=== PATIENT | male | born 1930 | race Caucasian/White ===

== ENCOUNTER 2018-02-07 09:37 | Emergency (ER) | payer OTHER ==
--- NOTE | 2018-02-07 10:37 | RAD REPORT ---
EXAM DESCRIPTION: CT - Stone Protocol - 02/07/2018 10:23 am CLINICAL HISTORY: Flank pain. COMPARISON: 12/22/2013 TECHNIQUE: Axial images were obtained without oral or IV contrast. Lack of contrast limits solid org an and vascular assessment. The [id number] spans the entirety of the system partially obscuring uppermost abdomen and lung bases. Coronal reformatted images were obtained and reviewed. All CT scans are performed using dose optimization technique as appropriate and may include automated exposure control or mA/KV adjustment according to patient size. FINDINGS: Linear atelectasis is present in both lung bases. Several low-density hepatic lesions are noted compatible with small benign cysts. No biliary dilatati on suspected. The spleen, pancreas and adrenal glands are within normal limits.17 mm inferolateral le ft renal cyst. Small cyst is present anterior inferior right kidney measuring 17 mm. The pancreas and adrenal glands are normal. No pathologic lymphadenopathy in the abdomen or pelvis. Aortic atheroscle rosis. No urinary tract stones or obstructive uropathy. Prominent retained stool in the colon is noted. Sigmoid diverticulosis is present. A small submucosal mass is suspected involving the sigmoid colon wall measuring 15 mm (image 91/167). Normal appendix n oted. Moderate lumbosacral degenerative changes. Moderate fat containing left inguinal hernia. IMPRESSION: No urinary tract stones or obstructive uropathy. Significant fecal retention in the colon. 15 mm submucosal mass suspected in the sigmoid colon. Followup colonoscopy may be considered. Sigmoid diverticulosis coli without diverticulitis.
[2018-02-07 10:53] LABS: Absolute Lymphocytes (CBC) 0.9 K/uL (0.7-4.9); Absolute Monocytes 0.5 K/uL (0.1-1.3); Absolute Neutrophil 5.7 K/uL (1.8-8.0); Basophils % 0.2 % (0-1.3); Eosinophils % 2.8 % (0-4.4); Hematocrit 45.8 % (39.6-49.0); Lymphocytes % 12.8 % (15.3-44.8); MCH 30.5 pg (27.0-35.0); MCV 93.8 fL (80-100); MPV 7.8 fL (7.6-11.3); Monocytes % 7.1 % (3.3-12.3); RBC Red Blood Cell Count 4.89 M/uL (4.33-5.43)
[2018-02-07 11:00] LABS: Potassium 4.7 mEq/L (3.6-5.0)
[2018-02-07 11:06] LABS: Albumin 4.1 g/dL (3.2-5.5); Bilirubin Direct 0.1 mg/dL (0-0.2); Bilirubin Total 1.1 mg/dL (0.3-1.2); Protein, Total 7.3 g/dL (6.0-8.3)
--- NOTE | 2018-02-07 11:22 | ER ---
Nurse's Notes [facility] Name: Hussein Corcoran Age: 88 yrs Sex: Male : 1930 Arrival Date: 02/07/2018 Time: 09:47 Bed 16 Private MD: Diagnosis: Generalized abdominal pain Presentation: 02/07 09:35 Presenting complaint: Presenting complaint: EMS states: Pt. is 87 yr old male from [address] A \T\ O x 1, Pt. had breakfast this morning and went to have a bowel movement, and was unable to and c/o of lower abdominal pain. When he got on the stretcher and laid back it relieved the pain. Pain was a 10/10, bowel sounds are normal. Pt. has irregular BM's. BS 168. Has a history of demenita. BP 127/63, P 90's, 95-96% RA. 12- lead showed SR with PVC's. NKA. 09:35 Transition of care: patient was received from another setting of care (long-term care [facility] facility), [facility]. 09:35 Method Of Arrival: EMS: [facility] 09:35 Onset of symptoms was February 07, 2018 at 09:10. Initial Sepsis Screen: Does the patient rb1 meet any 2 criteria? No. Patient's initial sepsis screen is negative. Does the patient have a suspected source of infection? No. Patient's initial sepsis screen is negative. Care prior to arrival: None. 09:35 Acuity: FADUMO 3 rb1 Triage Assessment: 09:35 General: Appears in no apparent distress. comfortable, Behavior is calm, cooperative, rb1 Denies fever. Pain: Complains of pain in lower abdomen Pain currently is 0 out of 10 on a pain scale. Neuro: Level of Consciousness is awake, alert, obeys commands, Oriented to person, place, time, situation. Cardiovascular: Capillary refill < 3 seconds is brisk in bilateral fingers. Respiratory: Airway is patent Respiratory effort is even, unlabored, Respiratory pattern is regular, symmetrical. GI: Reports constipation, last BM 2-3 days ago. Derm: Skin is pink, warm \T\ dry. Musculoskeletal: Range of motion: intact in all extremities. Historical: - Allergies: 09:35 No Known Allergies; rb1 - Home Meds: 09:35 Alphagan P 0.1 % ophthalmic drop 1 drop twice a day [Active]; aspirin 81 mg Oral chew 1 rb1 tab once daily [Active]; docusate sodium 100 mg Oral cap 2 caps once daily [Active]; dorzolamide 2 % ophthalmic drop 1 drop twice a day [Active]; duloxetine 60 mg oral cpDR 1 cap once daily [Active]; famotidine 40 mg Oral tab 1 tab once daily [Active]; hydrocodone-ibuprofen 7.5-200 mg Oral tab 1 tab four times a day [Active]; levocetirizine 5 mg oral tab 1 tab once daily [Active]; Lumigan 0.01 % ophthalmic drop daily [Active]; meloxicam 15 mg oral tab 1 tab once daily [Active]; metoprolol succinate 50 mg oral Tb24 1 tab once daily [Active]; Natural Balance Tears 0.1-0.3 % ophthalmic drop four times a day [Active]; potassium chloride 10 mEq Oral cpER 1 cap once daily [Active]; Systane Gel ophthalmic ophthalmic [Active]; tolterodine 4 mg oral cp24 1 cap once daily [Active]; trazodone 50 mg Oral tab 0.5 tab bedtime [Active]; lorazepam 0.5 mg Oral tab 1 tab bedtime [Active]; nitroglycerin 0.4 mg SL subl 1 tab every 5 minutes [Active]; - PMHx: 09:35 HEART FAILURE; High Cholesterol; rb1 - PSHx: 09:35 CABG; Cholecystectomy; cataract sx; Neck fusion; rb1 - Immunization history:: Adult Immunizations up to date. - Social history:: Smoking status: Patient/guardian denies using tobacco. Screenin:35 Abuse screen: Denies threats or abuse. Nutritional screening: No deficits noted. rb1 Tuberculosis screening: No symptoms or risk factors identified. Fall Risk None identified. Assessment: 09:35 General: see triage assessment. rb1 09:35 GI: Bowel sounds present X 4 quads. Abd is soft Abd is non tender. rb1 10:44 Reassessment: Patient appears in no apparent distress at this time. Patient and/or rb1 family updated on plan of care and expected duration. Pain level reassessed. Patient is alert, oriented x 3, equal unlabored respirations, skin warm/dry/pink. Patient denies pain at this time. 11:12 Reassessment: Patient appears in no apparent distress at this time. Assisted pt. to the [facility] restroom. 11:50 Reassessment: Gave report to Ligia Reyna at [facility]. Information from the SBAR was given. rb1 All questions asked and answered. Ligia Reyna will arrange for transportation. Vital Signs: 09:35 BP 128 / 90; Pulse 68; Resp 18; Temp 98.2(O); Pulse Ox 98% on R/A; Height 5 ft. 9 in. rb1 (175.26 cm); 10:32 BP 124 / 68; Pulse 72; Resp 17; Pulse Ox 98% on R/A; rb1 11:12 BP 125 / 82; Pulse 77; Resp 16; Pulse Ox 96% on R/A; Pain 0/10; rb1 12:10 BP 122 / 79; Pulse 78; Resp 19; Pulse Ox 98% on R/A; rb1 ED Course: 09:35 Arm band placed on right wrist. rb1 09:47 Patient arrived in ED. rb1 09:48 Sarah Boyle, RN is Primary Nurse. rb1 09:51 Zeeshan Ryder MD is Attending Physician. gs 09:54 Triage completed. rb1 10:05 EKG done, by ED staff, reviewed by Zeeshan Ryder MD. mh5 10:19 CT completed. Patient tolerated procedure well. Patient moved to CT via stretcher. sj Patient moved back from CT. 10:20 Missed attempt(s): 22 gauge in left antecubital area. mh5 10:20 Patient has correct armband on for positive identification. Placed in gown. Bed in low mh5 position. Side rails up X2. Warm blanket given. traffic monitor specialist on. Pulse ox on. NIBP on. 10:23 CT Stone Protocol In Process Unspecified. EDMS 12:04 IV discontinued, intact, bleeding controlled, No redness/swelling at site. Pressure rb1 dressing applied. 12:33 No provider procedures requiring assistance completed. rb1 Administered Medications: No medications were administered Output: 11:12 Stool: 1 (Formed Stool) ; Total: 0ml. rb1 Outcome: 11:20 Discharge ordered by . gs 12:33 Patient left the ED. aj1 12:33 Discharged to [facility] rb1 12:33 Condition: stable 12:33 Discharge instructions given to tunnel kiln operator, Instructed on discharge instructions, follow up and referral plans. Demonstrated understanding of instructions, follow-up care, Prescriptions given X none Signatures: Dispatcher [employer] Richelle De Dios RN RN aj1 Tamie Pink Rebecca, RN RN rb1 Nuria Patel [facility] Zeeshan Ryder MD MD gs Corrections: (The following items were deleted from the chart) 09:54 09:35 Presenting complaint: rb1 rb1
--- NOTE | 2018-02-07 11:22 | EDPHYS ---
Physician Documentation [facility] Name: Hussein Corcoran Age: 88 yrs Sex: Male : 1930 Arrival Date: 02/07/2018 Time: 09:47 Bed 16 Private MD: ED Physician Zeeshan Ryder HPI: 02/07 11:57 This 88 yrs old Male presents to ER via EMS with complaints of Abdominal Pain.gs 11:57 The patient presents with abdominal pain that is diffuse. Onset: The symptoms/episode gs began/occurred acutely, just prior to arrival. Associated signs and symptoms: Pertinent positives: constipation. The symptoms are described as crampy. Modifying factors: The symptoms are alleviated by nothing, the symptoms are aggravated by nothing. Severity of pain: At its worst the pain was severe in the emergency department the pain has resolved and did so just prior to arrival. The patient has experienced similar episodes in the past, a few times. Historical: - Allergies: 09:35 No Known Allergies; rb1 - Home Meds: 09:35 Alphagan P 0.1 % ophthalmic drop 1 drop twice a day [Active]; aspirin 81 mg Oral chew 1 rb1 tab once daily [Active]; docusate sodium 100 mg Oral cap 2 caps once daily [Active]; dorzolamide 2 % ophthalmic drop 1 drop twice a day [Active]; duloxetine 60 mg oral cpDR 1 cap once daily [Active]; famotidine 40 mg Oral tab 1 tab once daily [Active]; hydrocodone-ibuprofen 7.5-200 mg Oral tab 1 tab four times a day [Active]; levocetirizine 5 mg oral tab 1 tab once daily [Active]; Lumigan 0.01 % ophthalmic drop daily [Active]; meloxicam 15 mg oral tab 1 tab once daily [Active]; metoprolol succinate 50 mg oral Tb24 1 tab once daily [Active]; Natural Balance Tears 0.1-0.3 % ophthalmic drop four times a day [Active]; potassium chloride 10 mEq Oral cpER 1 cap once daily [Active]; Systane Gel ophthalmic ophthalmic [Active]; tolterodine 4 mg oral cp24 1 cap once daily [Active]; trazodone 50 mg Oral tab 0.5 tab bedtime [Active]; lorazepam 0.5 mg Oral tab 1 tab bedtime [Active]; nitroglycerin 0.4 mg SL subl 1 tab every 5 minutes [Active]; - PMHx: 09:35 HEART FAILURE; High Cholesterol; rb1 - PSHx: 09:35 CABG; Cholecystectomy; cataract sx; Neck fusion; rb1 - Immunization history:: Adult Immunizations up to date. - Social history:: Smoking status: Patient/guardian denies using tobacco. ROS: 11:57 All other systems are negative. gs Exam: 11:57 Head/Face: Normocephalic, atraumatic. Eyes: Pupils equal round and reactive to light, gs extra-ocular motions intact. Lids and lashes normal. Conjunctiva and sclera are non-icteric and not injected. Cornea within normal limits. Periorbital areas with no swelling, redness, or edema. ENT: Nares patent. No nasal discharge, no septal abnormalities noted. Tympanic membranes are normal and external auditory canals are clear. Oropharynx with no redness, swelling, or masses, exudates, or evidence of obstruction, uvula midline. Mucous membranes moist. Neck: Trachea midline, no thyromegaly or masses palpated, and no cervical lymphadenopathy. Supple, full range of motion without nuchal rigidity, or vertebral point tenderness. No Meningismus. Chest/axilla: Normal chest wall appearance and motion. Nontender with no deformity. No lesions are appreciated. Cardiovascular: Regular rate and rhythm with a normal S1 and S2. No gallops, murmurs, or rubs. Normal PMI, no JVD. No pulse deficits. Respiratory: Lungs have equal breath sounds bilaterally, clear to auscultation and percussion. No rales, rhonchi or wheezes noted. No increased work of breathing, no retractions or nasal flaring. Abdomen/GI: Soft, non-tender, with normal bowel sounds. No distension or tympany. No guarding or rebound. No evidence of tenderness throughout. 11:57 Skin: Warm, dry with normal turgor. Normal color with no rashes, no lesions, and no evidence of cellulitis. MS/ Extremity: Pulses equal, no cyanosis. Neurovascular intact. Full, normal range of motion. Neuro: Awake and alert, GCS 15, oriented to person, place, time, and situation. Cranial nerves II-XII grossly intact. Motor strength 5/5 in all extremities. Sensory grossly intact. Cerebellar exam normal. Normal gait. 11:57 Constitutional: The patient appears alert, awake. 11:57 Abdomen/GI: Rectal exam: Stool: brown, fecal impaction, is not appreciated. 15:49 ECG was reviewed by the Attending Physician. Vital Signs: 09:35 BP 128 / 90; Pulse 68; Resp 18; Temp 98.2(O); Pulse Ox 98% on R/A; Height 5 ft. 9 in. rb1 (175.26 cm); 10:32 BP 124 / 68; Pulse 72; Resp 17; Pulse Ox 98% on R/A; rb1 11:12 BP 125 / 82; Pulse 77; Resp 16; Pulse Ox 96% on R/A; Pain 0/10; rb1 12:10 BP 122 / 79; Pulse 78; Resp 19; Pulse Ox 98% on R/A; rb1 MDM: 09:51 Patient medically screened. 11:57 Differential diagnosis: AAA, bowel obstruction, diverticulitis. Data reviewed: vital gs signs, nurses notes. Response to treatment: the patient's symptoms have resolved after treatment, and as a result, I will discharge patient. 02/07 09:52 Order name: Basic Metabolic Panel; Complete Time: 11:20 02/07 09:52 Order name: CBC with Diff; Complete Time: 11:20 02/07 09:52 Order name: Hepatic Function; Complete Time: 11:20 02/07 09:52 Order name: Lipase; Complete Time: 11:20 02/07 09:52 Order name: Urine Microscopic Only; Complete Time: 12:03 02/07 11:43 Order name: Urine Dipstick--Ancillary (enter results); Complete Time: 12:03 [facility] 02/07 09:52 Order name: IV Saline Lock; Complete Time: 10:55 02/07 09:52 Order name: Labs collected and sent; Complete Time: 10:55 02/07 09:52 Order name: Urine Dipstick-Ancillary (obtain specimen); Complete Time: 11:47 02/07 09:52 Order name: EKG; Complete Time: 09:53 02/07 09:52 Order name: EKG - Nurse/Tech; Complete Time: 10:05 02/07 09:52 Order name: CT Stone Protocol; Complete Time: 10:39 02/07 11:57 Order name: Urine Culture EDMS EC:49 Rate is 80 beats/min. Rhythm is regular. NV interval is prolonged. QRS interval is gs normal. T waves are Normal. No ST changes noted. Clinical impression: Abnormal EKG without significant change. Interpreted by me. Administered Medications: No medications were administered Disposition: 02/07/18 11:20 Discharged to Home. Impression: Generalized abdominal pain. - Condition is Stable. - Discharge Instructions: Abdominal Pain, Adult. - SBAR form, Medication Reconciliation Form, Thank You Letter, Antibiotic Education, Prescription Opioid Use form. - Follow up: Private Physician; When: 2 - 3 days; Reason: Re-evaluation by your physician. Signatures: Dispatcher [employer] [facility] Richelle Art RN RN aj1 Sarah Boyle RN RN rb1 Zeeshan Ryder MD MD gs
[2018-02-07 11:56] LABS: Urine Bacteria <20 /HPF (NONE SEEN); Urine Culture Reflex Order REFLEXED; Urine RBC <5 /HPF (NONE SEEN)
[2018-02-07 11:57] LABS: Urine Blood NEGATIVE (NEG); Urine Glucose NEGATIVE (NEG); Urine Protein NEGATIVE (NEG)
[2018-02-07 12:41] VITALS: BP 125/82; O2SAT 96
--- NOTE | 2018-02-07 15:39 | EKG ---
Test Date: 2018-02-07 Test Time: 09:55:54 Delivery Supervisor: BJORN MEASUREMENT RESULTS: Intervals: Rate: 80 PA: 224 QRSD: 66 QT: 362 QTc: 417 [place]: P: 30 PA: 224 QRS: 17 T: 13 INTERPRETIVE STATEMENTS: Sinus rhythm with 1st degree AV block with premature atrial complexes Otherwise normal ECG Compared to ECG 02/06/2017 15:03:56 No significant changes Electronically Signed On 02-07-18 15:37:42 CDT by Scar Sanz
== END 2018-02-07 12:33 | disposition home or self-care (01) ==
LOC: ER 09:37
DX: R10.84 Generalized abdominal pain (principal); E78.00 Pure hypercholesterolemia, unspecified; I50.9 Heart failure, unspecified; Z95.1 Presence of aortocoronary bypass graft; Z79.82 Long term (current) use of aspirin
CPT/HCPCS: 36415; 74176; 76377; 80048; 80076; 81003; 81015; 83690; 85025; 87086; 87088; 93005; 99285

== ENCOUNTER 2018-02-16 20:20 | Emergency (ER) | payer OTHER ==
--- NOTE | 2018-02-16 20:35 | ER ---
Nurse's Notes [facility] Name: Hussein Corcoran Age: 88 yrs Sex: Male : 1930 Arrival Date: 02/16/2018 Time: 20:24 Bed Waiting Private MD: Mandie Campbell C Diagnosis: Presentation: 02/16 20:34 Note pt family contacted assisted living nurse and decided to take pt home. ak1 ED Course: 20:24 Patient arrived in ED. al2 20:24 Mandie Campbell MD is Private Physician. al2 Administered Medications: No medications were administered Outcome: 20:35 Patient left the ED. ak1 Signatures: Valerie Perales RN RN ak1 Sarika Dietrich
== END 2018-02-16 20:35 | disposition left against medical advice (07) ==
LOC: ER 20:20
DX: Z53.21 Procedure and treatment not carried out due to patient leaving prior to being seen by health care provider (principal)

== ENCOUNTER 2018-10-22 07:30 | Emergency (ER) | payer OTHER ==
[2018-10-22] MEDS ORDERED: NA CHLORIDE 0.9% 500 ML ONE (07:48)
[2018-10-22 08:17] LABS: Absolute Lymphocytes (CBC) 1.2 K/uL (0.7-4.9); Basophils % 0.3 % (0-1.3); Eosinophils % 1.8 % (0-4.4); Lymphocytes % 9.1 % (15.3-44.8); MPV 7.9 fL (7.6-11.3); Monocytes % 7.7 % (3.3-12.3); RBC Red Blood Cell Count 4.77 M/uL (4.33-5.43)
[2018-10-22 08:37] LABS: Potassium 4.5 mmol/L (3.5-5.1)
--- NOTE | 2018-10-22 08:47 | RAD REPORT ---
EXAM DESCRIPTION: Toro Rhodes (2 Views)10/22/2018 8:12 am CLINICAL HISTORY: Chest pain COMPARISON: 2017 FINDINGS: The lungs appear clear of acute infiltrate. The heart is mildly enlarged. Postsurgical changes involve the chest. IMPRESSION: No acute abnormalities displayed
[2018-10-22 08:49] LABS: Urine Blood NEGATIVE (NEG); Urine Glucose NEGATIVE (NEG); Urine Protein NEGATIVE (NEG)
[2018-10-22] MEDS ORDERED: CEFTRIAXONE/SWI 1gm 1 GM/10 ML SYR ONE (08:53)
[2018-10-22] MEDS ORDERED: AZITHROMYCIN IV 500 MG in NA CHLORIDE 0.9% 250 ML IVPB ONE (09:00)
--- NOTE | 2018-10-22 11:59 | EDPHYS ---
Physician Documentation [facility] Name: Hussein Corcoran Age: 88 yrs Sex: Male : 1930 Arrival Date: 10/22/2018 Time: 07:28 Bed 13 Private MD: ED Physician Emerson Ortega HPI: 10/22 07:31 This 88 yrs old Male presents to ER via Unassigned with complaints of rn Shortness Of Breath, Productive Cough. 07:31 The patient has shortness of breath at rest. Onset: The symptoms/episode began/occurred rn at an unknown time. Duration: The symptoms are intermittent. The patient's shortness of breath has no apparent modifying factors. Severity of symptoms: At their worst the symptoms were mild in the emergency department the symptoms are unchanged. It is unknown whether or not the patient has had similar symptoms in the past. Sent by alf for cough and sob, report from alf states at baseline mental status but persistent productive cough, oxygen 91%, no known pulmonary issues chronically. Pt denies pain.. Historical: - Allergies: 07:34 No Known Allergies; sg - Home Meds: 07:35 Alphagan P 0.1 % ophthalmic drop 1 drop twice a day [Active]; aspirin 81 mg Oral chew 1 rb1 tab once daily [Active]; docusate sodium 100 mg Oral cap 2 caps once daily [Active]; dorzolamide 2 % ophthalmic drop 1 drop twice a day [Active]; duloxetine 60 mg Oral cpDR 1 cap once daily [Active]; famotidine 40 mg Oral tab 1 tab once daily [Active]; hydrocodone-ibuprofen 5-200 mg oral tab 1 tab twice daily [Active]; levocetirizine 5 mg Oral tab 1 tab once daily [Active]; Lumigan 0.01 % ophthalmic drop daily [Active]; meloxicam 15 mg Oral tab 1 tab once daily [Active]; metoprolol succinate 50 mg Oral Tb24 1 tab once daily [Active]; Natural Balance Tears 0.1-0.3 % ophthalmic drop four times a day [Active]; potassium chloride 10 mEq Oral cpER 1 cap once daily [Active]; Systane Gel ophthalmic [Active]; tolterodine 4 mg Oral cp24 1 cap once daily [Active]; trazodone 50 mg Oral tab 0.5 tab bedtime [Active]; nitroglycerin 0.4 mg SL subl 1 tab every 5 minutes [Active]; Movantik 25 mg oral tab 1 tab once daily [Active]; polyethylene glycol 3350 miscellaneous powd [Active]; bisacodyl 10 mg Rectal supp 1 suppository once daily [Active]; Linzess 145 mcg oral cap 1 cap once daily [Active]; tizanidine 4 mg oral cap 1 cap 3 times per day [Active]; alprazolam 0.25 mg Oral tab 1 tab 3 times per day [Active]; - PMHx: 07:34 HEART FAILURE; High Cholesterol; sg - PSHx: 07:35 Cholecystectomy; Triple bypass; rb1 - Immunization history:: Adult Immunizations up to date. - Social history:: Smoking status: unknown. - Family history:: not pertinent. - Ebola Screening: : Patient negative for fever greater than or equal to 101.5 degrees Fahrenheit, and additional compatible Ebola Virus Disease symptoms Patient denies exposure to infectious person Patient denies travel to an Ebola-affected area in the 21 days before illness onset No symptoms or risks identified at this time. - Hospitalizations: : No recent hospitalization is reported. ROS: 07:31 Constitutional: Negative for fever, chills, and weight loss, Eyes: Negative for injury, rn pain, redness, and discharge, Neck: Negative for injury, pain, and swelling, Cardiovascular: Negative for chest pain, palpitations, and edema, Respiratory: + cough Abdomen/GI: Negative for abdominal pain, nausea, vomiting, diarrhea, and constipation, MS/Extremity: Negative for injury and deformity, Skin: Negative for injury, rash, and discoloration, Neuro: Negative for headache, numbness, tingling, and seizure. Exam: 07:33 Constitutional: This is a well developed, well nourished patient who is awake, alert, rn and in no acute distress. Head/Face: Normocephalic, atraumatic. Eyes: Pupils equal round and reactive to light, extra-ocular motions intact. Lids and lashes normal. Conjunctiva and sclera are non-icteric and not injected. Cornea within normal limits. Periorbital areas with no swelling, redness, or edema. ENT: Nares patent. No nasal discharge, no septal abnormalities noted. Dry MM, no stridor, no oral lesions Cardiovascular: tachycardic, regular, no murmur Respiratory: diminished bilateral bases, no wheezing, no retractions, + mild tachypnea Abdomen/GI: soft, non-tender MS/ Extremity: Pulses equal, no cyanosis. Neurovascular intact. Full, normal range of motion. Equal circumference. Neuro: Awake and alert, GCS 15, oriented to person, place, time. Cranial nerves II-XII grossly intact. Motor strength 5/5 in all extremities. Sensory grossly intact. Vital Signs: 07:32 BP 140 / 87; Pulse 113; Resp 22; Temp 98.7; Pulse Ox 93% on R/A; Pain 0/10; sg 07:32 Pulse Ox 97% on 3 lpm NC; sg 08:30 BP 151 / 93; Pulse 114; Resp 20; Pulse Ox 96% on 2 lpm NC; Pain 0/10; rb1 09:00 BP 186 / 63; Pulse 98; Resp 19; Pulse Ox 96% on 2 lpm NC; rb1 10:00 BP 110 / 68; Pulse 73; Resp 20; Pulse Ox 98% on 2 lpm NC; rb1 11:00 BP 103 / 70; Pulse 91; Resp 19; Pulse Ox 96% on R/A; Pain 0/10; rb1 12:00 BP 111 / 53; Pulse 95; Resp 20; Pulse Ox 98% on R/A; Pain 0/10; rb1 07:32 pt placed to NC at 3 lpm o2 increased to 97 % sg 09:00 pt. keeps moving his arm while the machine is taking his BP rb1 MDM: 07:30 Patient medically screened. rn 10:06 Differential diagnosis: Bronchitis Myocardial Infarction pneumonia, Pneumothorax rn pulmonary edema. Data reviewed: vital signs, nurses notes, lab test result(s), radiologic studies, plain films. 11:57 Counseling: I had a detailed discussion with the patient and/or guardian regarding: the rn historical points, exam findings, and any diagnostic results supporting the discharge/admit diagnosis, lab results, radiology results, the need for outpatient follow up, to return to the emergency department if symptoms worsen or persist or if there are any questions or concerns that arise at home. Special discussion: I discussed with the patient/guardian in detail that at this point there is no indication for admission to the hospital. It is understood, however, that if the symptoms persist or worsen the patient needs to return immediately for re-evaluation. ED course: Daughter here, states thinks patient had a panic attack, improves with xanax, neg cxr, neg procal, normal ECG.. 10/22 07:31 Order name: CBC with Diff; Complete Time: 08:24 rn 10/22 07:31 Order name: Basic Metabolic Panel; Complete Time: 10:06 rn 10/22 07:31 Order name: Flu; Complete Time: 08:24 rn 10/22 07:31 Order name: Blood Culture Adult (2) rn 10/22 07:31 Order name: Procalcitonin; Complete Time: 09:08 rn 10/22 07:31 Order name: Strep; Complete Time: 08:03 rn 10/22 07:31 Order name: XRAY Chest Pa And Lat (2 Views); Complete Time: 08:49 rn 10/22 08:01 Order name: Throat Culture EDWA 10/22 08:31 Order name: Urine Dipstick--Ancillary (enter results); Complete Time: 09:08 eb 10/22 09:09 Order name: LAB Add On eb 10/22 09:14 Order name: NT PRO-BNP; Complete Time: 10:06 EDWA 10/22 07:31 Order name: IV Start; Complete Time: 08:08 rn 10/22 10:07 Order name: EKG; Complete Time: 10:08 rn 10/22 10:07 Order name: EKG - Nurse/Tech; Complete Time: 11:05 rn Administered Medications: 08:40 Drug: NS 0.9% 500 ml Route: IV; Rate: bolus; Site: left antecubital; rb1 09:14 Follow up: IV Status: Completed infusion rb1 09:00 Drug: Rocephin 1 grams Route: IV; Rate: calculated rate; Site: left antecubital; rb1 09:30 Follow up: Response: No adverse reaction; IV Status: Completed infusion rb1 09:05 Drug: Zithromax 500 mg Route: IVPB; Infused Over: 1 hrs; Site: left antecubital; rb1 10:20 Follow up: Response: No adverse reaction; IV Status: Completed infusion rb1 09:36 Not Given (provider changed route to be given): Rocephin - (cefTRIAXone) 1 grams IVPB rb1 once over 30 mins; (mix in 50 mL NS) Disposition: 10/22/18 11:58 Discharged to Home. Impression: Cough. - Condition is Stable. - Discharge Instructions: Cough, Adult. - Medication Reconciliation Form, Thank You Letter, Antibiotic Education, Prescription Opioid Use form. - Follow up: Private Physician; When: As needed; Reason: Recheck today's complaints, Re-evaluation by your physician. - Problem is new. - Symptoms have improved. Signatures: Dispatcher [employer] EDJordin Conde RN RN Emerson Jade MD MD rn Barber, Rebecca, RN RN rb1 Corrections: (The following items were deleted from the chart) 12:19 11:58 10/22/2018 11:58 Discharged to Home. Impression: Cough. Condition is Stable. rb1 Forms are Medication Reconciliation Form, Thank You Letter, Antibiotic Education, Prescription Opioid Use. Follow up: Private Physician; When: As needed; Reason: Recheck today's complaints, Re-evaluation by your physician. Problem is new. Symptoms have improved. rn
--- NOTE | 2018-10-22 11:59 | ER ---
Nurse's Notes [facility] Name: Hussein Corcoran Age: 88 yrs Sex: Male : 1930 Arrival Date: 10/22/2018 Time: 07:28 Bed 13 Private MD: Diagnosis: Cough Presentation: 10/22 07:29 Presenting complaint: EMS states: pt is resident of [facility] [place], [place] staff reports sg productive cough x3 days, with shortness of breath that is worsening this morning. Transition of care: patient was not received from another setting of care. Onset of symptoms was October 22, 2018. Risk Assessment: Do you want to hurt yourself or someone else? Patient reports no desire to harm self or others. Initial Sepsis Screen: Does the patient meet any 2 criteria? RR > 20 per min. HR > 90 bpm. Does the patient have a suspected source of infection? Yes: Productive cough/pneumonia. Care prior to arrival: Oxygen administered. via nasal cannula. 07:29 Method Of Arrival: EMS: [facility] 07:29 Acuity: FADUMO 3 sg Triage Assessment: 07:35 Respiratory: Onset: The symptoms/episode began/occurred x 3 days, the patient has mild rb1 shortness of breath. Historical: - Allergies: 07:34 No Known Allergies; sg - Home Meds: 07:35 Alphagan P 0.1 % ophthalmic drop 1 drop twice a day [Active]; aspirin 81 mg Oral chew 1 rb1 tab once daily [Active]; docusate sodium 100 mg Oral cap 2 caps once daily [Active]; dorzolamide 2 % ophthalmic drop 1 drop twice a day [Active]; duloxetine 60 mg Oral cpDR 1 cap once daily [Active]; famotidine 40 mg Oral tab 1 tab once daily [Active]; hydrocodone-ibuprofen 5-200 mg oral tab 1 tab twice daily [Active]; levocetirizine 5 mg Oral tab 1 tab once daily [Active]; Lumigan 0.01 % ophthalmic drop daily [Active]; meloxicam 15 mg Oral tab 1 tab once daily [Active]; metoprolol succinate 50 mg Oral Tb24 1 tab once daily [Active]; Natural Balance Tears 0.1-0.3 % ophthalmic drop four times a day [Active]; potassium chloride 10 mEq Oral cpER 1 cap once daily [Active]; Systane Gel ophthalmic [Active]; tolterodine 4 mg Oral cp24 1 cap once daily [Active]; trazodone 50 mg Oral tab 0.5 tab bedtime [Active]; nitroglycerin 0.4 mg SL subl 1 tab every 5 minutes [Active]; Movantik 25 mg oral tab 1 tab once daily [Active]; polyethylene glycol 3350 miscellaneous powd [Active]; bisacodyl 10 mg Rectal supp 1 suppository once daily [Active]; Linzess 145 mcg oral cap 1 cap once daily [Active]; tizanidine 4 mg oral cap 1 cap 3 times per day [Active]; alprazolam 0.25 mg Oral tab 1 tab 3 times per day [Active]; - PMHx: 07:34 HEART FAILURE; High Cholesterol; sg - PSHx: 07:35 Cholecystectomy; Triple bypass; rb1 - Immunization history:: Adult Immunizations up to date. - Social history:: Smoking status: unknown. - Family history:: not pertinent. - Ebola Screening: : Patient negative for fever greater than or equal to 101.5 degrees Fahrenheit, and additional compatible Ebola Virus Disease symptoms Patient denies exposure to infectious person Patient denies travel to an Ebola-affected area in the 21 days before illness onset No symptoms or risks identified at this time. - Hospitalizations: : No recent hospitalization is reported. Screenin:35 Abuse screen: Denies threats or abuse. Nutritional screening: No deficits noted. rb1 Tuberculosis screening: No symptoms or risk factors identified. 07:35 Fall Risk No fall in past 12 months (0 pts). Secondary diagnosis (15 points) impaired rb1 mobility, IV access (20 points). Ambulatory Aid- Crutches/Cane/Walker (15 pts). Gait- Impaired (20 pts.). Mental Status- Overestimates/Forgets Limitations (15 pts.). Total Guillaume Fall Scale indicates High Risk Score (45 or more points). Fall prevention measures have been instituted. Side Rails Up X 2 Placed Close to Nursing Station 1:1 Attendant Assigned Frequent Obs/Assessments Occuring Family Present and informed to notify staff if the need to leave the bedside. Assessment: 07:35 General: Appears in no apparent distress. comfortable, Behavior is calm, cooperative. rb1 Pain: Denies pain. Neuro: Level of Consciousness is awake, obeys commands, Oriented to person. Cardiovascular: Capillary refill < 3 seconds is brisk in bilateral fingers Rhythm is regular. Respiratory: Reports cough that is productive, Airway is patent Respiratory effort is even, unlabored, Respiratory pattern is regular, symmetrical. GI: No signs and/or symptoms were reported involving the gastrointestinal system. : No signs and/or symptoms were reported regarding the genitourinary system. Derm: Skin is dry, Skin is normal, Skin temperature is warm. 07:35 Respiratory: Breath sounds are clear bilaterally. rb1 08:08 Reassessment: Pt to XRAY VIA wheelchair at this time with Neal Guido. No apparent ss distress at this time. 08:30 Reassessment: Patient appears in no apparent distress at this time. Patient and/or rb1 family updated on plan of care and expected duration. Pain level reassessed. Patient is alert, oriented x 3, equal unlabored respirations, skin warm/dry/pink. Patient denies pain at this time. 09:30 Reassessment: Patient appears in no apparent distress at this time. No changes from rb1 previously documented assessment. Reminded the pt. to keep his arm straight so the medication can infuse. 10:20 Reassessment: Patient appears in no apparent distress at this time. Family is at [facility] bedside. Family requested to speak with the doctor. Called on her extension to tell Dr. Ortega that the family wishes to speak with him. 10:58 Reassessment: pt. is resting with eyes closed, respirations even, unlabored. Daughter coco at bedside. 11:13 Reassessment: Dr. Ortega is at the pt. bedside speaking with the pt. and pt. family. rb1 12:05 Reassessment: Patient appears in no apparent distress at this time. Patient and/or rb1 family updated on plan of care and expected duration. Pain level reassessed. Patient is alert, oriented x 3, equal unlabored respirations, skin warm/dry/pink. Called report to Anna Marie at [facility]. Information from the [facility] was given. All questions asked and answered. Pt. daughter Emeli will be transporting the pt. back to the facility. Patient denies pain at this time. Vital Signs: 07:32 BP 140 / 87; Pulse 113; Resp 22; Temp 98.7; Pulse Ox 93% on R/A; Pain 0/10; sg 07:32 Pulse Ox 97% on 3 lpm NC; sg 08:30 BP 151 / 93; Pulse 114; Resp 20; Pulse Ox 96% on 2 lpm NC; Pain 0/10; rb1 09:00 BP 186 / 63; Pulse 98; Resp 19; Pulse Ox 96% on 2 lpm NC; rb1 10:00 BP 110 / 68; Pulse 73; Resp 20; Pulse Ox 98% on 2 lpm NC; rb1 11:00 BP 103 / 70; Pulse 91; Resp 19; Pulse Ox 96% on R/A; Pain 0/10; rb1 12:00 BP 111 / 53; Pulse 95; Resp 20; Pulse Ox 98% on R/A; Pain 0/10; rb1 07:32 pt placed to NC at 3 lpm o2 increased to 97 % sg 09:00 pt. keeps moving his arm while the machine is taking his BP rb1 ED Course: 07:28 Patient arrived in ED. sg 07:29 Emerson Ortega MD is Attending Physician. rn 07:32 Triage completed. sg 07:32 Arm band placed on. sg 07:35 Sarah Boyle, RN is Primary Nurse. rb1 07:35 Patient has correct armband on for positive identification. Placed in gown. Bed in low rb1 position. Call light in reach. Side rails up X2. surveillance system monitor on. Pulse ox on. NIBP on. Warm blanket given. 07:50 Missed attempt(s): 22 gauge in right antecubital area. rb1 08:00 Inserted saline lock: 22 gauge in left antecubital area, using aseptic technique. Blood ss collected. 08:04 Patient moved to radiology via wheelchair. jb2 08:09 X-ray completed. Patient tolerated procedure well. jb2 08:11 XRAY Chest Pa And Lat (2 Views) In Process Unspecified. EDMS 08:11 Patient moved back from radiology. jb2 08:30 Urine collected: urinal, clear 200mL. dh3 10:31 EKG done, by master automotive glass technician. reviewed by Emerson Ortega MD. at1 12:19 No provider procedures requiring assistance completed. IV discontinued, intact, rb1 bleeding controlled, No redness/swelling at site. Pressure dressing applied. Administered Medications: 08:40 Drug: NS 0.9% 500 ml Route: IV; Rate: bolus; Site: left antecubital; rb1 09:14 Follow up: IV Status: Completed infusion rb1 09:00 Drug: Rocephin 1 grams Route: IV; Rate: calculated rate; Site: left antecubital; rb1 09:30 Follow up: Response: No adverse reaction; IV Status: Completed infusion rb1 09:05 Drug: Zithromax 500 mg Route: IVPB; Infused Over: 1 hrs; Site: left antecubital; rb1 10:20 Follow up: Response: No adverse reaction; IV Status: Completed infusion rb1 09:36 Not Given (provider changed route to be given): Rocephin - (cefTRIAXone) 1 grams IVPB rb1 once over 30 mins; (mix in 50 mL NS) Outcome: 11:58 Discharge ordered by MD. rn 12:19 Patient left the ED. rb1 12:19 Discharged to home via wheelchair, with family. rb1 12:19 Condition: stable 12:19 Discharge instructions given to family, Instructed on discharge instructions, follow up and referral plans. Demonstrated understanding of instructions, follow-up care, Prescriptions given X none Signatures: Dispatcher [employer] EDJordin Conde, RN Neal Harding2 Emerson Ortega MD MD rn Smirch, Shelby, RN RN ss Claire Majano, commutator inspector EKG Tat1 Sarah Boyle, RN RN rb1 Jennifer Redding 3
--- NOTE | 2018-10-22 12:03 | EKG ---
Test Date: 2018-10-22 Test Time: 10:13:28 Machine Ii Coremaker: TERESA MEASUREMENT RESULTS: Intervals: Rate: 97 TX: 234 QRSD: 72 QT: 344 QTc: 436 [place]: P: 27 TX: 234 QRS: 45 T: 23 INTERPRETIVE STATEMENTS: Sinus rhythm with 1st degree AV block with occasional premature ventricular complexes Otherwise normal ECG Compared to ECG 02/07/2018 09:55:54 Ventricular premature complex(es) now present Atrial premature complex(es) no longer present Electronically Signed On 10-22-18 12:03:14 LENDING ACTIVITIES SUPERVISOR by Scar Sanz
[2018-10-22 16:10] VITALS: TEMP 98.7
[2018-10-22 16:15] VITALS: BP 103/70; O2SAT 96
== END 2018-10-22 12:19 | disposition home or self-care (01) ==
LOC: ER 07:30
DX: R05 Cough (principal); I44.0 Atrioventricular block, first degree; I49.3 Ventricular premature depolarization; E78.00 Pure hypercholesterolemia, unspecified; I50.9 Heart failure, unspecified; Z79.82 Long term (current) use of aspirin; Z79.899 Other long term (current) drug therapy; Z95.1 Presence of aortocoronary bypass graft
CPT/HCPCS: 36415; 71046; 80048; 81003; 83880; 84145; 85025; 87040 ×2; 87070; 87081; 87205; 87804 ×2; 93005; 96361; 96365; 96368; 99285; J0456; J0696

== ENCOUNTER 2019-10-21 15:56 | Emergency (ER) | payer OTHER ==
--- NOTE | 2019-10-21 16:52 | ER ---
Nurse's Notes [facility] Name: Hussein Corcoran Age: 89 yrs Sex: Male : 1930 Arrival Date: 10/21/2019 Time: 15:59 Bed 25 Private MD: Diagnosis: Other slipping, tripping and stumbling and falls;Superficial injury of head Presentation: 10/21 15:59 Presenting complaint: EMS states: PATIENT FOUND ON THE FLOOR. DENIES ANY PAIN. WITH rv HISTORY OF ALZHEIMER'S AND DEMENTIA. PATIENT BECAME VERY DIZZY ON STANDING POSITION, COULD NOT GET ANY BLOOD PRESSURE ON UPRIGHT POSITION. Transition of care: BEAN HERMAN. Onset of symptoms was October 21, 2019 at 15:30. Risk Assessment: Do you want to hurt yourself or someone else? Patient reports no desire to harm self or others. Initial Sepsis Screen: Does the patient meet any 2 criteria? No. Patient's initial sepsis screen is negative. Does the patient have a suspected source of infection? No. Patient's initial sepsis screen is negative. Care prior to arrival: None. 15:59 Method Of Arrival: EMS: [facility] rv 15:59 Acuity: FADUMO 3 rv Triage Assessment: 16:03 General: Appears in no apparent distress. Behavior is calm, cooperative. Pain: Denies rv pain. Neuro: Level of Consciousness is awake, alert. Musculoskeletal: Denies PAIN. Historical: - Allergies: 16:03 No Known Allergies; rv - PMHx: 16:03 HEART FAILURE; High Cholesterol; Alzheimers; Dementia; rv - PSHx: 16:03 Unable to obtain; rv - Immunization history:: Adult Immunizations up to date. - Social history:: Smoking status: unknown. - Ebola Screening: : No symptoms or risks identified at this time. Screenin:45 Abuse screen: Denies threats or abuse. Denies injuries from another. Nutritional aj1 screening: No deficits noted. Tuberculosis screening: No symptoms or risk factors identified. 17:13 Fall Risk Fall in past 12 months (25 points). Secondary diagnosis (15 points) rv Alzheimer's, dementia, impaired mobility. Assessment: 16:45 General: Appears in no apparent distress. comfortable, Behavior is calm, cooperative, aj1 appropriate for age. Pain: Denies pain. Neuro: Level of Consciousness is awake, alert, obeys commands. Cardiovascular: Patient's skin is warm and dry. Respiratory: Airway is patent Respiratory effort is even, unlabored, Respiratory pattern is regular, symmetrical. GI: No signs and/or symptoms were reported involving the gastrointestinal system. Patient currently denies vomiting, LOC. : No signs and/or symptoms were reported regarding the genitourinary system. EENT: No signs and/or symptoms were reported regarding the EENT system. Derm: No signs and/or symptoms reported regarding the dermatologic system. Skin is pink, warm \T\ dry. normal. Musculoskeletal: No signs and/or symptoms reported regarding the musculoskeletal system. Circulation, motion, and sensation intact. 17:10 Reassessment: daughter talked to Dr Brown and decided not to do the work up and bring rv the patient back home. Vital Signs: 16:02 Pulse 92; Resp 18; Temp 98.8; Pulse Ox 97% on R/A; rv 16:14 BP 157 / 98; aj1 ED Course: 15:59 Patient arrived in ED. rv 16:02 Triage completed. rv 16:04 Arm band placed on Patient placed in the treatment room, on a stretcher, Patient rv notified of wait time. 16:09 Colin Brown MD is Attending Physician. kdr 16:13 Richelle Art, RN is Primary Nurse. aj1 16:45 Patient has correct armband on for positive identification. aj1 16:45 No provider procedures requiring assistance completed. aj1 17:13 Patient did not have IV access during this emergency room visit. rv Administered Medications: No medications were administered Outcome: 16:49 Discharge ordered by . kdr 17:13 Discharged to home via wheelchair, with family. rv 17:13 Condition: unchanged 17:13 Discharge instructions given to family, Instructed on discharge instructions, follow up and referral plans. Demonstrated understanding of instructions, follow-up care. 17:13 Patient left the ED. rv Signatures: Richelle Art, RN RN aj1 Colin Brown MD MD kdr Singh Alan RN RN rv
--- NOTE | 2019-10-21 16:53 | EDPHYS ---
Physician Documentation [facility] Name: Hussein Corcoran Age: 89 yrs Sex: Male : 1930 Arrival Date: 10/21/2019 Time: 15:59 Bed 25 Private MD: ED Physician Colin Brown HPI: 10/21 16:50 This 89 yrs old Male presents to ER via EMS with complaints of fall from kdr standing. 16:50 Details of fall: The patient fell from an upright position, while standing, while kdr walking. Onset: The symptoms/episode began/occurred acutely, just prior to arrival. Associated injuries: The patient sustained injury to the head, contusion. Severity of symptoms: At their worst the symptoms were very mild, in the emergency department the symptoms. The patient has not experienced similar symptoms in the past. The patient has not recently seen a physician. The patient was apparently walking behind his wheel chair when he tripped and went to the floor. He reports hitting his head but denies LOC. He currently has no new c/o. The patient and daughter wish no further w/u or evaluation at this time. Historical: - Allergies: 16:03 No Known Allergies; rv - PMHx: 16:03 HEART FAILURE; High Cholesterol; Alzheimers; Dementia; rv - PSHx: 16:03 Unable to obtain; rv - Immunization history:: Adult Immunizations up to date. - Social history:: Smoking status: unknown. - Ebola Screening: : No symptoms or risks identified at this time. ROS: 16:50 Constitutional: Negative for fever, chills, and weight loss, Eyes: Negative for injury, kdr pain, redness, and discharge, ENT: Negative for injury, pain, and discharge, Neck: Negative for injury, pain, and swelling, Cardiovascular: Negative for chest pain, palpitations, and edema, Respiratory: Negative for shortness of breath, cough, wheezing, and pleuritic chest pain, Abdomen/GI: Negative for abdominal pain, nausea, vomiting, diarrhea, and constipation, Back: Negative for injury and pain, : Negative for injury, bleeding, discharge, and swelling, MS/Extremity: Negative for injury and deformity - chronic pain to tle right shoulder. Skin: Negative for injury, rash, and discoloration, Neuro: Negative for headache, weakness, numbness, tingling, and seizure activity. Psych: Negative for depression, anxiety, suicide ideation, homicidal ideation, and hallucinations, Allergy/Immunology: Negative for hives, rash, and allergies, Endocrine: Negative for neck swelling, polydipsia, polyuria, polyphagia, and marked weight changes, Hematologic/Lymphatic: Negative for swollen nodes, abnormal bleeding, and unusual bruising. Exam: 16:50 Constitutional: This is a well developed, well nourished patient who is awake, alert, kdr and in no acute distress. Head/Face: Normocephalic, atraumatic. Eyes: Pupils equal round and reactive to light, extra-ocular motions intact. Lids and lashes normal. Conjunctiva and sclera are non-icteric and not injected. Cornea within normal limits. Periorbital areas with no swelling, redness, or edema. Neck: Trachea midline, no thyromegaly or masses palpated, and no cervical lymphadenopathy. Supple, full range of motion without nuchal rigidity, or vertebral point tenderness. No Meningismus. Chest/axilla: Normal chest wall appearance and motion. Nontender with no deformity. No lesions are appreciated. Cardiovascular: Regular rate and rhythm with a normal S1 and S2. No gallops, murmurs, or rubs. Normal PMI, no JVD. No pulse deficits. Respiratory: Lungs have equal breath sounds bilaterally, clear to auscultation and percussion. No rales, rhonchi or wheezes noted. No increased work of breathing, no retractions or nasal flaring. Abdomen/GI: Soft, non-tender, with normal bowel sounds. No distension or tympany. No guarding or rebound. No evidence of tenderness throughout. Back: No spinal tenderness. No costovertebral tenderness. Full range of motion. Skin: Warm, dry with normal turgor. Normal color with no rashes, no lesions, and no evidence of cellulitis. MS/ Extremity: Pulses equal, no cyanosis. Neurovascular intact. Full, normal range of motion except for right shoudler Neuro: Awake and alert, GCS 15, oriented to person, place, time, and situation. Cranial nerves II-XII grossly intact. Motor strength 4+/5 in all extremities. Sensory grossly intact Psych: Awake, alert, with orientation to person, place and time. Behavior, mood, and affect are within normal limits. Vital Signs: 16:02 Pulse 92; Resp 18; Temp 98.8; Pulse Ox 97% on R/A; rv 16:14 BP 157 / 98; aj1 MDM: 16:49 Patient medically screened. kdr 16:50 Data reviewed: vital signs, nurses notes, lab test result(s), radiologic studies. kdr 10/21 16:27 Order name: EKG; Complete Time: 16:28 kdr Administered Medications: No medications were administered Disposition: 10/21/19 16:49 Discharged to Home. Impression: Other slipping, tripping and stumbling and falls, Superficial injury of head. - Condition is Stable. - Discharge Instructions: Fall Prevention in the Home, [id number], Weakness, [id number], Head Injury, Adult, [id number]. - Medication Reconciliation Form, Thank You Letter form. - Follow up: Private Physician; When: 2 - 3 days; Reason: If symptoms return, Further diagnostic work-up, Recheck today's complaints, Continuance of care, Re-evaluation by your physician. - Problem is new. - Symptoms have improved. Signatures: Dispatcher [employer] EDMS Colin Brown MD MD [facility] Alan RN RN rv Corrections: (The following items were deleted from the chart) 16:58 16:50 Constitutional: This is a well developed, well nourished patient who is awake, kdr alert, and in no acute distress. Head/Face: Normocephalic, atraumatic. Eyes: Pupils equal round and reactive to light, extra-ocular motions intact. Lids and lashes normal. Conjunctiva and sclera are non-icteric and not injected. Cornea within normal limits. Periorbital areas with no swelling, redness, or edema. Neck: Trachea midline, no thyromegaly or masses palpated, and no cervical lymphadenopathy. Supple, full range of motion without nuchal rigidity, or vertebral point tenderness. No Meningismus. Chest/axilla: Normal chest wall appearance and motion. Nontender with no deformity. No lesions are appreciated. Cardiovascular: Regular rate and rhythm with a normal S1 and S2. No gallops, murmurs, or rubs. Normal PMI, no JVD. No pulse deficits. Respiratory: Lungs have equal breath sounds bilaterally, clear to auscultation and percussion. No rales, rhonchi or wheezes noted. No increased work of breathing, no retractions or nasal flaring. Abdomen/GI: Soft, non-tender, with normal bowel sounds. No distension or tympany. No guarding or rebound. No evidence of tenderness throughout. Back: No spinal tenderness. No costovertebral tenderness. Full range of motion. Skin: Warm, dry with normal turgor. Normal color with no rashes, no lesions, and no evidence of cellulitis. MS/ Extremity: Pulses equal, no cyanosis. Neurovascular intact. Full, normal range of motion except for right shoudler Neuro: Awake and alert, GCS 15, oriented to person, place, time, and situation. Cranial nerves II-XII grossly intact. Motor strength 5/5 in all extremities. Sensory grossly intact. Cerebellar exam normal. Normal gait. Psych: Awake, alert, with orientation to person, place and time. Behavior, mood, and affect are within normal limits. kdr 16:59 16:28 Chest Single View+RAD.RAD.BRZ ordered. EDMS EDMS 17:11 16:27 Cardiac monitoring ordered. kdr rv 17:12 16:27 EKG - Nurse/Tech ordered. kdr rv 17:12 16:27 IV Saline Lock ordered. kdr rv 17:12 16:27 Labs collected and sent ordered. kdr rv 17:12 16:27 Oxygen Per Protocol ordered. kdr rv 17:12 16:27 O2 Sat Monitoring ordered. kdr rv 17:13 16:49 10/21/2019 16:49 Discharged to Home. Impression: Other slipping, tripping and rv stumbling and falls; Superficial injury of head. Condition is Stable. Forms are Medication Reconciliation Form, Thank You Letter, Antibiotic Education, Prescription Opioid Use. Follow up: Private Physician; When: 2 - 3 days; Reason: If symptoms return, Further diagnostic work-up, Recheck today's complaints, Continuance of care, Re-evaluation by your physician. Problem is new. Symptoms have improved. kdr
[2019-10-21 17:25] VITALS: BP 157/98; TEMP 98.8; O2SAT 97
== END 2019-10-21 17:13 | disposition home or self-care (01) ==
LOC: ER 15:56
DX: S00.90XA Unspecified superficial injury of unspecified part of head, initial encounter (principal); W01.0XXA Fall on same level from slipping, tripping and stumbling without subsequent striking against object, initial encounter; Y92.9 Unspecified place or not applicable; G30.9 Alzheimer's disease, unspecified; F02.80 Dementia in other diseases classified elsewhere, unspecified severity, without behavioral disturbance, psychotic disturbance, mood disturbance, and anxiety
CPT/HCPCS: 93005; 99283

== ENCOUNTER 2019-11-12 08:39 | Emergency (ER) | payer OTHER ==
[2019-11-12] MEDS ORDERED: LIDOCAINE 1% W/EPI 1:100,000 MDV 20 ML VIAL ONE (09:52)
[2019-11-12] MEDS ORDERED: CEPHALEXIN 250 MG CAP ONE (10:24)
[2019-11-12] MEDS ORDERED: TETANUS & DIPHTHERIA TOX,ADULT 0.5 ML VIAL ONE (10:24)
--- NOTE | 2019-11-12 10:32 | RAD REPORT ---
EXAM DESCRIPTION: RAD - Forearm Right - 11/12/2019 10:26 am CLINICAL HISTORY: PAIN COMPARISON: No comparisons FINDINGS: Large laceration along the dorsum of the proximal forearm. No underlying fracture. No fore ign body.
--- NOTE | 2019-11-12 10:46 | EDPHYS ---
Physician Documentation [facility] Name: Hussein Corcoran Age: 89 yrs Sex: Male : 1930 Arrival Date: 11/12/2019 Time: 08:47 Bed 17 Private MD: CONCETTA Physician Denzel Barry HPI: 11/12 09:49 This 89 yrs old Male presents to ER via EMS with complaints of Skin Tear(s). lauren 09:49 The patient or guardian complains of a laceration, 3 cm(s), irregular, ragged, pain, lauren that is acute. The complaints affect the palmar aspect of right forearm. Context: The problem was sustained at a fdc or assisted living facility. Onset: The symptoms/episode began/occurred just prior to arrival. Treatment prior to arrival includes: no previous treatment. Associated signs and symptoms: The patient has no apparent associated signs or symptoms. The patient has experienced similar episodes in the past, a few times. Historical: - Allergies: 08:54 No Known Drug Allergies; ph - Home Meds: 08:54 Alphagan P 0.1 % ophthalmic drop 1 drop twice a day [Active]; alprazolam 0.25 mg Oral ph tab 1 tab 3 times per day [Active]; aspirin 81 mg Oral chew 1 tab once daily [Active]; bisacodyl 10 mg Rectal supp 1 suppository once daily [Active]; docusate sodium 100 mg Oral cap 2 caps once daily [Active]; dorzolamide 2 % ophthalmic drop 1 drop twice a day [Active]; duloxetine 60 mg Oral cpDR 1 cap once daily [Active]; famotidine 40 mg Oral tab 1 tab once daily [Active]; hydrocodone-ibuprofen 5-200 mg Oral tab 1 tab twice daily [Active]; levocetirizine 5 mg Oral tab 1 tab once daily [Active]; Linzess 145 mcg Oral cap 1 cap once daily [Active]; lorazepam 0.5 mg Oral tab 1 tab bedtime [Active]; Lumigan 0.01 % ophthalmic drop daily [Active]; meloxicam 15 mg Oral tab 1 tab once daily [Active]; metoprolol succinate 50 mg Oral Tb24 1 tab once daily [Active]; Movantik 25 mg Oral tab 1 tab once daily [Active]; Natural Balance Tears 0.1-0.3 % ophthalmic drop four times a day [Active]; nitroglycerin 0.4 mg SL subl 1 tab every 5 minutes [Active]; polyethylene glycol 3350 miscellaneous powd [Active]; potassium chloride 10 mEq Oral cpER 1 cap once daily [Active]; Systane Gel ophthalmic [Active]; tizanidine 4 mg Oral cap 1 cap 3 times per day [Active]; tolterodine 4 mg Oral cp24 1 cap once daily [Active]; trazodone 50 mg Oral tab 0.5 tab bedtime [Active]; - PMHx: 08:54 Alzheimers; Dementia; HEART FAILURE; High Cholesterol; ph - PSHx: 08:54 Unable to obtain; ph - Immunization history:: Adult Immunizations unknown. - Coronavirus screen:: The patient has NOT traveled to [place], [place], or [place] in the past 14 days. - Social history:: Smoking status: Patient denies any tobacco usage or history of. - Family history:: not pertinent. - Ebola Screening: : No symptoms or risks identified at this time. ROS: 09:49 Constitutional: Negative for fever, chills, and weight loss, Eyes: Negative for injury, lauren pain, redness, and discharge, ENT: Negative for injury, pain, and discharge, Neck: Negative for injury, pain, and swelling, Cardiovascular: Negative for chest pain, palpitations, and edema, Respiratory: Negative for shortness of breath, cough, wheezing, and pleuritic chest pain, Abdomen/GI: Negative for abdominal pain, nausea, vomiting, diarrhea, and constipation, Back: Negative for injury and pain, : Negative for injury, bleeding, discharge, and swelling, Skin: Negative for injury, rash, and discoloration, Neuro: Negative for headache, weakness, numbness, tingling, and seizure, Psych: Negative for depression, anxiety, suicide ideation, homicidal ideation, and hallucinations, Allergy/Immunology: Negative for hives, rash, and allergies, Endocrine: Negative for neck swelling, polydipsia, polyuria, polyphagia, and marked weight changes, Hematologic/Lymphatic: Negative for swollen nodes, abnormal bleeding, and unusual bruising. 09:49 MS/extremity: Positive for decreased range of motion, laceration, swelling, tenderness, of the palmar aspect of right forearm. Exam: 09:49 Constitutional: This is a well developed, well nourished patient who is awake, alert, lauren and in no acute distress. Head/Face: Normocephalic, atraumatic. Eyes: Pupils equal round and reactive to light, extra-ocular motions intact. Lids and lashes normal. Conjunctiva and sclera are non-icteric and not injected. Cornea within normal limits. Periorbital areas with no swelling, redness, or edema. ENT: Nares patent. No nasal discharge, no septal abnormalities noted. Tympanic membranes are normal and external auditory canals are clear. Oropharynx with no redness, swelling, or masses, exudates, or evidence of obstruction, uvula midline. Mucous membranes moist. Neck: Trachea midline, no thyromegaly or masses palpated, and no cervical lymphadenopathy. Supple, full range of motion without nuchal rigidity, or vertebral point tenderness. No Meningismus. Chest/axilla: Normal chest wall appearance and motion. Nontender with no deformity. No lesions are appreciated. Cardiovascular: Regular rate and rhythm with a normal S1 and S2. No gallops, murmurs, or rubs. Normal PMI, no JVD. No pulse deficits. Respiratory: Lungs have equal breath sounds bilaterally, clear to auscultation and percussion. No rales, rhonchi or wheezes noted. No increased work of breathing, no retractions or nasal flaring. Abdomen/GI: Soft, non-tender, with normal bowel sounds. No distension or tympany. No guarding or rebound. No evidence of tenderness throughout. Back: No spinal tenderness. No costovertebral tenderness. Full range of motion. Skin: Warm, dry with normal turgor. Normal color with no rashes, no lesions, and no evidence of cellulitis. Neuro: Awake and alert, GCS 15, oriented to person, place, time, and situation. Cranial nerves II-XII grossly intact. Motor strength 5/5 in all extremities. Sensory grossly intact. Cerebellar exam normal. Normal gait. Psych: Awake, alert, with orientation to person, place and time. Behavior, mood, and affect are within normal limits. 09:49 Musculoskeletal/extremity: Circulation is intact in all extremities. DVT Exam: No signs of deep vein thrombosis. no pain, no swelling, no tenderness, negative Homans' sign noted on exam, no appreciated bluish discoloration, no erythema, no increased warmth. Vital Signs: 08:50 BP 156 / 91; Pulse 107; Resp 16 S; Temp 97.6(O); Pulse Ox 96% on R/A; Pain 0/10; jl7 10:14 BP 139 / 81; Pulse 96; Resp 16 S; Pulse Ox 98% on R/A; jl7 Laceration: 09:56 Wound Repair of 3cm ( 1.2in ) subcutaneous laceration to palmar aspect of right [facility] forearm. Irregularly shaped.. Skin/tissue flap noted.. Distal neuro/vascular/tendon intact. Anesthesia: Local anesthetic administered with 8 mls of 1% lidocaine w/ Epi. Wound prep: Moderate cleansing with betadine by pa. Skin closed with 2 4-0 Prolene using interrupted sutures and sterile technique. Dressed with Neosporin, pressure dressing, non-adherent dressing. Patient tolerated well. MDM: 08:50 Patient medically screened. [facility] 09:52 Data reviewed: vital signs, nurses notes, radiologic studies, plain films. 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 Exp: 10/30/2021. Lot #: [id number]. } Route: IM; Site: right deltoid; 11:56 Follow up: Response: No adverse reaction ph 11:10 Drug: KeFLEX 500 mg Route: PO; ph 11:57 Follow up: Response: No adverse reaction ph 11:30 Drug: Lidocaine-Epinephrine -1%: (1:100,000) 10 ml Volume: 20 ml; Route: Infiltration; ph 11:57 Follow up: Response: No adverse reaction ph Disposition: 11/12/19 10:46 Discharged to Home. Impression: Fall due to bumping against object, Laceration without foreign body of right forearm. - Condition is Stable. - Discharge Instructions: Laceration Care, Adult, Laceration Care, Adult, [id number]-[id number], Fall Prevention in the Home, Hybk-ev-Nqtu. - Prescriptions for Keflex 500 mg Oral Capsule - take 1 capsule by ORAL route every 6 hours for 10 days; 28 capsule. - Medication Reconciliation Form, Thank You Letter, Antibiotic Education, Prescription Opioid Use form. - Follow up: Private Physician; When: 2 - 3 days; Reason: Recheck today's complaints, Continuance of care, Re-evaluation by your physician. - Problem is new. - Symptoms have improved. Signatures: Dispatcher [employer] EDMS Denzel Barry MD MD cha Hall, Patricia RN RN Trini Moody RN RN jl7 Corrections: (The following items were deleted from the chart) 11:59 10:46 11/12/2019 10:46 Discharged to Home. Impression: Fall due to bumping against ph object; Laceration without foreign body of right forearm. Condition is Stable. Discharge Instructions: Laceration Care, Adult, Laceration Care, Adult, [id number]-[id number], Fall Prevention in the Home, [id number]. Prescriptions for Keflex 500 mg Oral Capsule - take 1 capsule by ORAL route every 6 hours for 10 days; 28 capsule. and Forms are Medication Reconciliation Form, Thank You Letter, Antibiotic Education, Prescription Opioid Use. Follow up: Private Physician; When: 2 - 3 days; Reason: Recheck today's complaints, Continuance of care, Re-evaluation by your physician. Problem is new. Symptoms have improved. lauren
--- NOTE | 2019-11-12 10:46 | ER ---
Nurse's Notes [facility] Name: Hussein Corcoran Age: 89 yrs Sex: Male : 1930 Arrival Date: 11/12/2019 Time: 08:47 Bed 17 Private MD: Diagnosis: Fall due to bumping against object;Laceration without foreign body of right forearm Presentation: 11/12 08:50 Presenting complaint: EMS states: He stumbled and fell back hitting his right elbow on jl7 the side table, skin tears and avulsion noted to right elbow. Pt denies pain, daughter at bedside and reports he is on hospice. Transition of care: patient was received from another setting of care (long-term care facility), [facility]. Onset of symptoms was November 12, 2019. Risk Assessment: Do you want to hurt yourself or someone else? Patient reports no desire to harm self or others. Initial Sepsis Screen: Does the patient meet any 2 criteria? No. Patient's initial sepsis screen is negative. Does the patient have a suspected source of infection? No. Patient's initial sepsis screen is negative. Care prior to arrival: Bleeding of injury controlled. Injury dressed. 08:50 Method Of Arrival: EMS: [facility] jl7 08:50 Acuity: FADUMO 4 jl7 Triage Assessment: 08:50 General: Appears in no apparent distress. uncomfortable, Behavior is calm, cooperative, jl7 appropriate for age. Pain: Denies pain. Neuro: Level of Consciousness is awake, alert, obeys commands. Cardiovascular: Patient's skin is warm and dry. Respiratory: Airway is patent Respiratory effort is even, unlabored, Respiratory pattern is regular, symmetrical. Derm: Skin is pink, warm \T\ dry. Injury Description: Avulsion skin tears noted to right elbow. Historical: - Allergies: 08:54 No Known Drug Allergies; ph - Home Meds: 08:54 Alphagan P 0.1 % ophthalmic drop 1 drop twice a day [Active]; alprazolam 0.25 mg Oral ph tab 1 tab 3 times per day [Active]; aspirin 81 mg Oral chew 1 tab once daily [Active]; bisacodyl 10 mg Rectal supp 1 suppository once daily [Active]; docusate sodium 100 mg Oral cap 2 caps once daily [Active]; dorzolamide 2 % ophthalmic drop 1 drop twice a day [Active]; duloxetine 60 mg Oral cpDR 1 cap once daily [Active]; famotidine 40 mg Oral tab 1 tab once daily [Active]; hydrocodone-ibuprofen 5-200 mg Oral tab 1 tab twice daily [Active]; levocetirizine 5 mg Oral tab 1 tab once daily [Active]; Linzess 145 mcg Oral cap 1 cap once daily [Active]; lorazepam 0.5 mg Oral tab 1 tab bedtime [Active]; Lumigan 0.01 % ophthalmic drop daily [Active]; meloxicam 15 mg Oral tab 1 tab once daily [Active]; metoprolol succinate 50 mg Oral Tb24 1 tab once daily [Active]; Movantik 25 mg Oral tab 1 tab once daily [Active]; Natural Balance Tears 0.1-0.3 % ophthalmic drop four times a day [Active]; nitroglycerin 0.4 mg SL subl 1 tab every 5 minutes [Active]; polyethylene glycol 3350 miscellaneous powd [Active]; potassium chloride 10 mEq Oral cpER 1 cap once daily [Active]; Systane Gel ophthalmic [Active]; tizanidine 4 mg Oral cap 1 cap 3 times per day [Active]; tolterodine 4 mg Oral cp24 1 cap once daily [Active]; trazodone 50 mg Oral tab 0.5 tab bedtime [Active]; - PMHx: 08:54 Alzheimers; Dementia; HEART FAILURE; High Cholesterol; ph - PSHx: 08:54 Unable to obtain; ph - Immunization history:: Adult Immunizations unknown. - Coronavirus screen:: The patient has NOT traveled to [place], [place], or [place] in the past 14 days. - Social history:: Smoking status: Patient denies any tobacco usage or history of. - Family history:: not pertinent. - Ebola Screening: : No symptoms or risks identified at this time. Screenin:57 Abuse screen: Denies threats or abuse. Denies injuries from another. Nutritional ph screening: No deficits noted. Tuberculosis screening: No symptoms or risk factors identified. Fall Risk None identified. Assessment: 08:57 General: See triage assessment. [facility] 10:16 Reassessment: Patient appears in no apparent distress at this time. No changes from 7 previously documented assessment. Patient and/or family updated on plan of care and expected duration. Pain level reassessed. Patient is alert, oriented x 3, equal unlabored respirations, skin warm/dry/pink. 11:03 Reassessment: Patient appears in no apparent distress at this time. Patient and/or ph family updated on plan of care and expected duration. Pain level reassessed. Pt awake and alert w/ no distress noted, awaiting suture placement and wound care prior to d/c. Vital Signs: 08:50 BP 156 / 91; Pulse 107; Resp 16 S; Temp 97.6(O); Pulse Ox 96% on R/A; Pain 0/10; jl7 10:14 BP 139 / 81; Pulse 96; Resp 16 S; Pulse Ox 98% on R/A; jl7 ED Course: 08:47 Patient arrived in ED. ph 08:50 Trini Spivey RN is Primary Nurse. jl7 08:50 Denzel Barry MD is Attending Physician. [facility] 08:52 Triage completed. jl7 08:55 Arm band placed on Patient placed in an exam room, on a stretcher. ph 08:56 Patient has correct armband on for positive identification. Placed in gown. Bed in low ph position. Call light in reach. Side rails up X 1. Pulse ox on. NIBP on. 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 Exp: ph 10/30/2021. Lot #: [id number]. } Route: IM; Site: right deltoid; 11:56 Follow up: Response: No adverse reaction ph 11:10 Drug: KeFLEX 500 mg Route: PO; ph 11:57 Follow up: Response: No adverse reaction ph 11:30 Drug: Lidocaine-Epinephrine -1%: (1:100,000) 10 ml Volume: 20 ml; Route: Infiltration; ph 11:57 Follow up: Response: No adverse reaction ph Outcome: 10:46 Discharge ordered by . lauren 11:59 Patient left the ED. ph Signatures: Denzel Barry MD MD cha Hall, Patricia RN RN ph Trini Spivey, TORIBIO ROONEY Jerry
[2019-11-12] MEDS ORDERED: KETOROLAC 30 MG/ML INJ ONE (11:12)
[2019-11-12] MEDS ORDERED: CEFTRIAXONE/SWI 1gm 1 GM/10 ML SYR ONE (11:12)
[2019-11-12 12:12] VITALS: TEMP 97.6
[2019-11-12 12:14] VITALS: BP 139/81; O2SAT 98
== END 2019-11-12 11:59 | disposition home or self-care (01) ==
LOC: ER 08:39
PROC: 0JQG0ZZ Repair Right Lower Arm Subcutaneous Tissue and Fascia, Open Approach (ICD-10-PCS; principal; 2019-11-12)
DX: S51.811A Laceration without foreign body of right forearm, initial encounter (principal); W18.00XA Striking against unspecified object with subsequent fall, initial encounter; Y93.9 Activity, unspecified; Y92.129 Unspecified place in nursing home as the place of occurrence of the external cause; Z23 Encounter for immunization; Z79.82 Long term (current) use of aspirin; G30.9 Alzheimer's disease, unspecified; F02.80 Dementia in other diseases classified elsewhere, unspecified severity, without behavioral disturbance, psychotic disturbance, mood disturbance, and anxiety; E78.00 Pure hypercholesterolemia, unspecified
CPT/HCPCS: 73090; 90471; 90714; 99283; 12002; J0696